=== PATIENT | female | born 1940 | race Caucasian/White ===

== ENCOUNTER → 2016-05-08 | Outpatient (CLI) | payer OTHER ==
[~2016-05-08] MED LIST: ACID CONTROL150 MG PO; ALDACTONE25 MG PO; AMARYL 2MG TABLE2 MG PO; ANORO ELLIPTA1 EACH INH; ASPIRIN EC81 MG PO; ATROVENT-HFA12.9 GM INH; AUGMENTIN 875-1 EACH PO; BUPROPION HCL100 M1 PO; BUSPIRONE HCL5 MG PO; CARDIZEM CD120 MG PO; CLARITIN 10MG T10 MG PO; COL-RITE100 MG PO; COZAAR 50MG TAB50 MG PO; DALIRESP500 MCG PO; DIFLUCAN150 MG PO; DIGITEK250 MCG PO; ELIQUIS5 MG PO; ESCITALOPRAM OX20 MG PO; FAMOTIDINE20 MG PO; FLONASE 0.05% N16 GM INH; FUROSEMIDE20 MG PO; IPRAT-ALBUT 0.5-3 ML INH; IPRAT-ALBUT 0.5-3 ML NEB; K-DUR TAB 10 M10 MEQ PO; KEFLEX500 MG PO; LANTUS SOL100 UNIT/1 SC; LASIX40 MG PO; LEVEMIR100 UNIT/1 SQ; LEXAPRO20 MG PO; LINZESS290 MCG PO; LIPITOR TAB 1010 MG PO; LISINOPRIL2.5 MG PO; LOPRESSOR 25 MG25 MG PO; LOPRESSOR 50 MG50 MG PO; METOCLOPRAMIDE H5 MG PO; MUCINEX DM ER1 EAC1 PO; MUCINEX600 MG PO; NEURONTIN 300300 MG PO; NITROFURANTOIN100 MG PO; NITROSTAT0.4 MG SQ; NOVOLIN R100 UNIT/1 SQ; PHENERGAN 25 MG25 M1 PO; PREDNISONE20 MG PO; REQUIP0.5 MG PO; REQUIP1 MG PO; RESTASIS 0.05%1 EACH OD; TESSALON PERLE100 MG PO; THEO-DUR 300 M300 MG PO; TRADJENTA5 MG PO; ULTRAM50 MG PO; VENTOLIN/PROVE0.5 ML INH; WARFARIN SODIUM3 MG PO; ZOFRAN 8 MG TAB8 MG PO; ZOFRAN4 MG PO
== END ==
LOC: RT 17:57
DX: I48.91 Unspecified atrial fibrillation (principal)
CPT/HCPCS: 93270

== ENCOUNTER 2016-06-10 12:20 | Inpatient (IN) | payer OTHER ==
[~2016-06-10] VITALS: Ht 157.5 cm; Wt 110.2 kg
[2016-06-10] MEDS ORDERED: ANORO ELLIPTA1 EACH INH (15:12)
[2016-06-10] MEDS ORDERED: LIPITOR TAB 1010 MG PO (15:13)
[2016-06-10] MEDS ORDERED: DALIRESP500 MCG PO (15:15)
[2016-06-10] MEDS ORDERED: BUPROPION HCL100 M1 PO (15:15)
[2016-06-10] MEDS ORDERED: DIGITEK250 MCG PO (15:15)
[2016-06-10] MEDS ORDERED: ESCITALOPRAM OX20 MG PO (15:18)
[2016-06-10] MEDS ORDERED: AMARYL 2MG TABLE2 MG PO (15:19)
[2016-06-10] MEDS ORDERED: NEURONTIN 300300 MG PO (15:19)
[2016-06-10] MEDS ORDERED: FUROSEMIDE20 MG PO (15:19)
[2016-06-10] MEDS ORDERED: IPRAT-ALBUT 0.5-3 ML INH (15:20)
[2016-06-10] MEDS ORDERED: LANTUS SOL100 UNIT/1 SC (15:21)
[2016-06-10] MEDS ORDERED: LINZESS290 MCG PO (15:22)
[2016-06-10] MEDS ORDERED: CLARITIN 10MG T10 MG PO (15:22)
[2016-06-10] MEDS ORDERED: COZAAR 50MG TAB50 MG PO (15:23)
[2016-06-10] MEDS ORDERED: METOCLOPRAMIDE H5 MG PO (15:24)
[2016-06-10] MEDS ORDERED: LOPRESSOR 50 MG50 MG PO (15:25)
[2016-06-10] MEDS ORDERED: MUCINEX600 MG PO (15:25)
[2016-06-10] MEDS ORDERED: ZOFRAN 8 MG TAB8 MG PO (15:26)
[2016-06-10] MEDS ORDERED: PHENERGAN 25 MG25 M1 PO (15:27)
[2016-06-10] MEDS ORDERED: ACID CONTROL150 MG PO (15:28)
[2016-06-10] MEDS ORDERED: K-DUR TAB 10 M10 MEQ PO (15:28)
[2016-06-10] MEDS ORDERED: RESTASIS 0.05%1 EACH OD (15:29)
[2016-06-10] MEDS ORDERED: THEO-DUR 300 M300 MG PO (15:30)
[2016-06-10] MEDS ORDERED: REQUIP1 MG PO (15:30)
[2016-06-10] MEDS ORDERED: TRADJENTA5 MG PO (15:31)
[2016-06-10] MEDS ORDERED: WARFARIN SODIUM3 MG PO (15:31)
[2016-06-10] MEDS ORDERED: ULTRAM50 MG PO (15:31)
[2016-06-10 15:37] LABS: HEMOGLOBIN 11.2 gm/dl (12.3-15.3); RED BLOOD COUNT 4.11 M/UL (4.00-5.10)
[2016-06-10 19:03] LABS: THEOPHYLLINE 19.1 ug/mL (10.0-20.0)
[2016-06-11 03:39] LABS: HEMOGLOBIN 10.2 gm/dl (12.3-15.3); RED BLOOD COUNT 3.73 M/UL (4.00-5.10); WHITE BLOOD COUNT 7.3 K/UL (4.5-11.0)
[2016-06-11 03:57] LABS: THEOPHYLLINE 18.9 ug/mL (10.0-20.0)
[2016-06-12 04:48] LABS: HEMOGLOBIN 12.2 gm/dl (12.3-15.3); RED BLOOD COUNT 4.33 M/UL (4.00-5.10); WHITE BLOOD COUNT 11.3 K/UL (4.5-11.0)
[2016-06-13 03:48] LABS: HEMOGLOBIN 10.4 gm/dl (12.3-15.3)
[2016-06-13 03:50] LABS: RED BLOOD COUNT 3.89 M/UL (4.00-5.10); WHITE BLOOD COUNT 5.3 K/UL (4.5-11.0)
[2016-06-13 04:07] LABS: BUN/CREATININE RATIO 24 (0-10)
[2016-06-14 03:19] LABS: HEMOGLOBIN 9.8 gm/dl (12.3-15.3); RED BLOOD COUNT 3.64 M/UL (4.00-5.10); WHITE BLOOD COUNT 5.2 K/UL (4.5-11.0)
[2016-06-15 05:10] LABS: HEMOGLOBIN 10.2 gm/dl (12.3-15.3); RED BLOOD COUNT 3.86 M/UL (4.00-5.10); WHITE BLOOD COUNT 5.6 K/UL (4.5-11.0)
[2016-06-15 05:18] LABS: BUN/CREATININE RATIO 29 (0-10)
[2016-06-16 03:41] LABS: HEMOGLOBIN 9.7 gm/dl (12.3-15.3); RED BLOOD COUNT 3.68 M/UL (4.00-5.10); WHITE BLOOD COUNT 6.6 K/UL (4.5-11.0)
[2016-06-16 04:02] LABS: BUN/CREATININE RATIO 26 (0-10)
[2016-06-17 03:53] LABS: HEMOGLOBIN 8.8 gm/dl (12.3-15.3); RED BLOOD COUNT 3.37 M/UL (4.00-5.10); WHITE BLOOD COUNT 7.9 K/UL (4.5-11.0)
[2016-06-17 04:20] LABS: BUN/CREATININE RATIO 29 (0-10)
[2016-06-18 03:47] LABS: HEMOGLOBIN 9.5 gm/dl (12.3-15.3); RED BLOOD COUNT 3.58 M/UL (4.00-5.10); WHITE BLOOD COUNT 11.8 K/UL (4.5-11.0)
[2016-06-18 03:55] LABS: BUN/CREATININE RATIO 30 (0-10)
[2016-06-19 03:54] LABS: HEMOGLOBIN 9.1 gm/dl (12.3-15.3); RED BLOOD COUNT 3.45 M/UL (4.00-5.10); WHITE BLOOD COUNT 10.2 K/UL (4.5-11.0)
[2016-06-19 04:18] LABS: BUN/CREATININE RATIO 43 (0-10)
[2016-06-20 03:28] LABS: HEMOGLOBIN 9.1 gm/dl (12.3-15.3); RED BLOOD COUNT 3.44 M/UL (4.00-5.10); WHITE BLOOD COUNT 9.9 K/UL (4.5-11.0)
[2016-06-20 03:47] LABS: BUN/CREATININE RATIO 48 (0-10)
[2016-06-21 04:33] LABS: BUN/CREATININE RATIO 37 (0-10)
[2016-06-22 04:51] LABS: HEMOGLOBIN 8.8 gm/dl (12.3-15.3); RED BLOOD COUNT 3.31 M/UL (4.00-5.10); WHITE BLOOD COUNT 10.3 K/UL (4.5-11.0)
[2016-06-22 05:11] LABS: BUN/CREATININE RATIO 42 (0-10)
[2016-06-24 04:09] LABS: BUN/CREATININE RATIO 39 (0-10)
[2016-06-25 03:18] LABS: HEMOGLOBIN 9.9 gm/dl (12.3-15.3)
[2016-06-25 03:52] LABS: BUN/CREATININE RATIO 36 (0-10)
[2016-06-25 04:00] LABS: RED BLOOD COUNT 3.77 M/UL (4.00-5.10)
[2016-06-26 05:11] LABS: HEMOGLOBIN 8.6 gm/dl (12.3-15.3); WHITE BLOOD COUNT 10.2 K/UL (4.5-11.0)
[2016-06-26 05:15] LABS: RED BLOOD COUNT 3.32 M/UL (4.00-5.10)
[2016-06-27 04:21] LABS: HEMOGLOBIN 7.2 gm/dl (12.3-15.3)
[2016-06-27 04:24] LABS: RED BLOOD COUNT 2.73 M/UL (4.00-5.10); WHITE BLOOD COUNT 6.1 K/UL (4.5-11.0)
[2016-06-27 04:40] LABS: BUN/CREATININE RATIO 48 (0-10)
[2016-06-28 04:08] LABS: HEMOGLOBIN 8.5 gm/dl (12.3-15.3); RED BLOOD COUNT 3.27 M/UL (4.00-5.10); WHITE BLOOD COUNT 6.4 K/UL (4.5-11.0)
[2016-06-28 04:30] LABS: BUN/CREATININE RATIO 43 (0-10)
[2016-06-29 03:34] LABS: RED BLOOD COUNT 3.39 M/UL (4.00-5.10); WHITE BLOOD COUNT 6.5 K/UL (4.5-11.0)
[2016-06-29 03:52] LABS: BUN/CREATININE RATIO 41 (0-10)
[2016-06-30 04:34] LABS: HEMOGLOBIN 8.5 gm/dl (12.3-15.3); RED BLOOD COUNT 3.23 M/UL (4.00-5.10); WHITE BLOOD COUNT 6.2 K/UL (4.5-11.0)
[2016-06-30 04:47] LABS: BUN/CREATININE RATIO 33 (0-10)
[2016-07-01 03:37] LABS: RED BLOOD COUNT 3.37 M/UL (4.00-5.10); WHITE BLOOD COUNT 7.4 K/UL (4.5-11.0)
[2016-07-01 03:53] LABS: BUN/CREATININE RATIO 38 (0-10)
[2016-07-02 04:09] LABS: HEMOGLOBIN 9.1 gm/dl (12.3-15.3); RED BLOOD COUNT 3.46 M/UL (4.00-5.10); WHITE BLOOD COUNT 6.3 K/UL (4.5-11.0)
[2016-07-02 04:24] LABS: BUN/CREATININE RATIO 28 (0-10)
[2016-07-03 03:45] LABS: HEMOGLOBIN 9.8 gm/dl (12.3-15.3); RED BLOOD COUNT 3.58 M/UL (4.00-5.10); WHITE BLOOD COUNT 5.9 K/UL (4.5-11.0)
[2016-07-03 04:15] LABS: BUN/CREATININE RATIO 29 (0-10)
[2016-07-04 05:20] LABS: HEMOGLOBIN 9.2 gm/dl (12.3-15.3); RED BLOOD COUNT 3.54 M/UL (4.00-5.10); WHITE BLOOD COUNT 4.8 K/UL (4.5-11.0)
[2016-07-04 06:00] LABS: BUN/CREATININE RATIO 26 (0-10)
[2016-07-05 04:14] LABS: HEMOGLOBIN 9.5 gm/dl (12.3-15.3); RED BLOOD COUNT 3.62 M/UL (4.00-5.10)
[2016-07-05 04:30] LABS: BUN/CREATININE RATIO 20 (0-10)
[2016-07-06 06:15] LABS: BUN/CREATININE RATIO 14 (0-10)
[2016-07-08 05:36] LABS: HEMOGLOBIN 10.5 gm/dl (12.3-15.3); RED BLOOD COUNT 4.03 M/UL (4.00-5.10); WHITE BLOOD COUNT 5.5 K/UL (4.5-11.0)
[2016-07-08 05:56] LABS: BUN/CREATININE RATIO 9 (0-10)
[2016-07-09 06:21] LABS: BUN/CREATININE RATIO 9 (0-10)
--- NOTE | 2016-07-11 05:30 | NUR ---
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 THE PT STATED SHE NEEDED TO USE THE BATHROOM. DAMION AND AIDAN REMINDED PT THAT SHE HAD A [employer] CATHETER IN PLACE. PT CONTINUED TO STATE SHE NEEDED TO GO TO BATHROOM AND DAMION AND AIDAN OFFERED TO PUT PT ON BEDPAN, AND PT STATED SHE WANTED TO GET OUT OF BED TO USE THE BATHROOM. UPON HEARING THAT THE PT WANTED TO GET OUT OF BED, I ENTERED THE ROOM TO INVESTIGATE. I ASKED THE PT IF SHE NEEDED TO USE THE BATHROOM AND THE PT STATED THAT SHE NEEDED TO URINATE. I REMINDED THE PT THAT SHE HAD A CATHETER IN PLACE. I CHECKED THE CATHETER TO MAKE SURE IT WAS NOT KINKED AND CAUSING PRESSURE ON THE PT'S BLADDER. THE CATHETER WAS FOUND TO BE PATENT, BUT IT WAS NOT IN AN OPTIMAL POSITION. I REPOSITIONED THE CATHETER AND REPLACED THE STAT LOCK. THE PT AGAIN STATED THAT SHE NEEDED TO USE THE BATHROOM. I TOLD HER IT WAS NOT SAFE FOR HER TO GET OUT OF BED BECAUSE SHE NEARLY FELL THE LAST TIME SHE WAS OUT OF BED AND ROHIT AND I BARELY GOT HER BACK INTO BED SAFELY. AIDAN AND DAMION STATED THAT SHE REFUSED TO USE THE BEDPAN EARLIER, THE PT DENIED THAT SHE REFUSED THE BEDPAN. I THEN HELPED THE CNAs PULL THE PT UP IN BED AND TO PUT THE PT ON THE BEDPAN.
[2016-09-01] MEDS ORDERED: TESSALON PERLE100 MG PO (02:55)
[2016-09-01] MEDS ORDERED: BUSPIRONE HCL5 MG PO (02:57)
[2016-09-10] MEDS ORDERED: DIFLUCAN150 MG PO (21:51)
[2016-09-11] MEDS ORDERED: KEFLEX500 MG PO (21:52)
[2016-09-11] MEDS ORDERED: ZOFRAN4 MG PO (21:52)
[2016-09-11] MEDS ORDERED: COL-RITE100 MG PO (21:53)
[2016-09-11] MEDS ORDERED: VENTOLIN/PROVE0.5 ML INH (21:54)
[2016-09-11] MEDS ORDERED: IPRAT-ALBUT 0.5-3 ML INH (21:55)
[2016-09-11] MEDS ORDERED: NOVOLIN R100 UNIT/1 SQ (21:57)
[2016-09-12] MEDS ORDERED: LISINOPRIL2.5 MG PO (16:46)
[2016-09-12] MEDS ORDERED: ALDACTONE25 MG PO (16:48)
[2016-09-12] MEDS ORDERED: NITROSTAT0.4 MG SQ (16:48)
== END 2016-07-11 15:57 | DRG 853 ==
LOC: PROG CARE 12:20 → M/S 14:24 → CCU 14:24 → PROG CARE 07-02 21:25 → M/S 07-05 09:58
PROVIDERS: Emergency Medicine; Family Medicine; Internal Medicine; Internal Medicine Pulmonary Disease; ADMIT Internal Medicine
PROC: 5A1955Z Respiratory Ventilation, Greater than 96 Consecutive Hours (ICD-10-PCS; 2016-06-10)
PROC: 0BH17EZ Insertion of Endotracheal Airway into Trachea, Via Natural or Artificial Opening (ICD-10-PCS; 2016-06-10)
PROC: 0B9J8ZX Drainage of Left Lower Lung Lobe, Via Natural or Artificial Opening Endoscopic, Diagnostic (ICD-10-PCS; principal; 2016-06-11 08:08)
PROC: 5A1955Z Respiratory Ventilation, Greater than 96 Consecutive Hours (ICD-10-PCS; 2016-06-25)
PROC: 0BH17EZ Insertion of Endotracheal Airway into Trachea, Via Natural or Artificial Opening (ICD-10-PCS; 2016-06-25)
DX: A41.9 Sepsis, unspecified organism (principal); J96.21 Acute and chronic respiratory failure with hypoxia; J96.22 Acute and chronic respiratory failure with hypercapnia; I50.33 Acute on chronic diastolic (congestive) heart failure; G93.40 Encephalopathy, unspecified; J18.9 Pneumonia, unspecified organism; R65.21 Severe sepsis with septic shock; E66.2 Morbid (severe) obesity with alveolar hypoventilation; N30.00 Acute cystitis without hematuria; J44.0 Chronic obstructive pulmonary disease with (acute) lower respiratory infection; N17.9 Acute kidney failure, unspecified; I48.2 Chronic atrial fibrillation; E87.6 Hypokalemia; E11.9 Type 2 diabetes mellitus without complications; I11.0 Hypertensive heart disease with heart failure; Y95 Nosocomial condition; E78.5 Hyperlipidemia, unspecified; B96.20 Unspecified Escherichia coli [E. coli] as the cause of diseases classified elsewhere; D64.9 Anemia, unspecified; Z79.01 Long term (current) use of anticoagulants; Z88.1 Allergy status to other antibiotic agents; Z88.8 Allergy status to other drugs, medicaments and biological substances; Z91.041 Radiographic dye allergy status; Z79.4 Long term (current) use of insulin; Z79.899 Other long term (current) drug therapy; Z87.891 Personal history of nicotine dependence; Z82.49 Family history of ischemic heart disease and other diseases of the circulatory system; Z83.3 Family history of diabetes mellitus; Z68.37 Body mass index [BMI] 37.0-37.9, adult; F41.9 Anxiety disorder, unspecified; F32.9 Major depressive disorder, single episode, unspecified; Z98.42 Cataract extraction status, left eye; Z98.41 Cataract extraction status, right eye; Z96.1 Presence of intraocular lens; Z90.49 Acquired absence of other specified parts of digestive tract
CPT/HCPCS: ECHO; 31500; 36415; 36600; 70450; 71010; 74000; 80048; 80053; 80061; 80162; 80198; 80202; 81001; 82550; 82553; 82607; 82728; 82746; 82803; 82962; 83036; 83735; 83880; 84132; 84439; 84443; 84484; 85025; 85027; 85610; 86140; 87040; 87070; 87077; 87081; 87086; 87186; 87205; 89055; 92526; 92610; 93005; 93306; 93308; 93970; 94002; 94003; 94640; 94660; 94664; 94760; 95819; 97110; 97530; A4628; J1120; J1205; J1335; J1642; J1650; J1940; J2060; J2250; J2270; J3370; J3480; J7030; J7040; J7050; J7070; Q0162

== ENCOUNTER 2016-07-20 12:57 | Inpatient (IN) | payer OTHER ==
[~2016-07-20] VITALS: Ht 160 cm; Wt 102.1 kg
[~2016-07-20 12:57] MED LIST changes: -ALDACTONE25 MG PO; -ASPIRIN EC81 MG PO; -ATROVENT-HFA12.9 GM INH; -AUGMENTIN 875-1 EACH PO; -BUSPIRONE HCL5 MG PO; -CARDIZEM CD120 MG PO; -COL-RITE100 MG PO; -DIFLUCAN150 MG PO; -ELIQUIS5 MG PO; -FAMOTIDINE20 MG PO; -FLONASE 0.05% N16 GM INH; -IPRAT-ALBUT 0.5-3 ML NEB; -KEFLEX500 MG PO; -LASIX40 MG PO; -LEVEMIR100 UNIT/1 SQ; -LEXAPRO20 MG PO; -LISINOPRIL2.5 MG PO; -LOPRESSOR 25 MG25 MG PO; -MUCINEX DM ER1 EAC1 PO; -NITROFURANTOIN100 MG PO; -NITROSTAT0.4 MG SQ; -NOVOLIN R100 UNIT/1 SQ; -PREDNISONE20 MG PO; -REQUIP0.5 MG PO; -TESSALON PERLE100 MG PO; -VENTOLIN/PROVE0.5 ML INH; -ZOFRAN4 MG PO
[2016-07-20 14:41] LABS: HEMOGLOBIN 10.9 gm/dl (12.3-15.3); RED BLOOD COUNT 4.08 M/UL (4.00-5.10); WHITE BLOOD COUNT 11.5 K/UL (4.5-11.0)
[2016-07-20 15:02] LABS: BUN/CREATININE RATIO 9 (0-10)
[2016-07-20] MEDS ORDERED: FAMOTIDINE20 MG PO (19:43)
[2016-07-20] MEDS ORDERED: REQUIP0.5 MG PO (19:56)
[2016-07-20] MEDS ORDERED: ATROVENT-HFA12.9 GM INH (19:57)
[2016-07-20] MEDS ORDERED: LEXAPRO20 MG PO (19:58)
[2016-07-20] MEDS ORDERED: NITROFURANTOIN100 MG PO (19:59)
[2016-07-20] MEDS ORDERED: LEVEMIR100 UNIT/1 SQ (20:00)
[2016-07-21 02:28] LABS: HEMOGLOBIN 10.5 gm/dl (12.3-15.3); RED BLOOD COUNT 3.91 M/UL (4.00-5.10); WHITE BLOOD COUNT 10.6 K/UL (4.5-11.0)
[2016-07-21 02:57] LABS: BUN/CREATININE RATIO 11 (0-10)
[2016-07-21 11:32] LABS: BORDETELLA PERTUSSIS Not Detected (Negative); CHLAMYDOPHLA PNEUMONIAE Not Detected (Negative); CORONAVIRUS HKU1 Not Detected (Negative); CORONAVIRUS NL63 Not Detected (Negative); CORONAVIRUS OC43 Not Detected (Negative); CORONOAVIRUS 229E Not Detected (Negative); HUMAN METAPNEUMOVIRUS Not Detected (Negative); HUMAN RHINOVIRUS/ENTEROVIRUS Not Detected (Negative); INFLUENZA A Not Detected (Negative); INFLUENZA A H-1-2009 Not Detected (Negative); INFLUENZA A H1 Not Detected (Negative); INFLUENZA A H3 Not Detected (Negative); INFLUENZA B Not Detected (Negative); MYCOPLASMA PNEUMONIAE Not Detected (Negative); PARAINFLUENZA VIRUS 1 Not Detected (Negative); PARAINFLUENZA VIRUS 2 Not Detected (Negative); PARAINFLUENZA VIRUS 4 Not Detected (Negative); RESPIRATORY SYNCYTIAL VIRUS Not Detected (Negative)
[2016-07-21 12:53] LABS: PARAINFLUENZA VIRUS 3 DETECTED (Negative)
[2016-07-21] MEDS ORDERED: LOPRESSOR 25 MG25 MG PO (19:53)
[2016-07-22 03:42] LABS: RED BLOOD COUNT 3.77 M/UL (4.00-5.10)
[2016-07-22 03:45] LABS: WHITE BLOOD COUNT 5.3 K/UL (4.5-11.0)
[2016-07-22 04:03] LABS: BUN/CREATININE RATIO 21 (0-10)
[2016-07-23 04:12] LABS: HEMOGLOBIN 9.8 gm/dl (12.3-15.3); RED BLOOD COUNT 3.69 M/UL (4.00-5.10); WHITE BLOOD COUNT 7.6 K/UL (4.5-11.0)
[2016-07-23 04:25] LABS: BUN/CREATININE RATIO 26 (0-10)
[2016-07-25 03:41] LABS: HEMOGLOBIN 10.1 gm/dl (12.3-15.3); RED BLOOD COUNT 3.84 M/UL (4.00-5.10)
[2016-07-25 03:49] LABS: WHITE BLOOD COUNT 5.6 K/UL (4.5-11.0)
[2016-07-25 04:05] LABS: BUN/CREATININE RATIO 23 (0-10)
[2016-07-26] MEDS ORDERED: ASPIRIN EC81 MG PO (19:22)
[2016-07-26] MEDS ORDERED: ELIQUIS5 MG PO (19:23)
[2016-07-26] MEDS ORDERED: AUGMENTIN 875-1 EACH PO (19:24)
[2016-07-26] MEDS ORDERED: IPRAT-ALBUT 0.5-3 ML NEB (19:25)
[2016-07-26] MEDS ORDERED: PREDNISONE20 MG PO (19:26)
[2016-07-26] MEDS ORDERED: CARDIZEM CD120 MG PO (19:26)
[2016-09-01] MEDS ORDERED: TESSALON PERLE100 MG PO (02:55)
[2016-09-01] MEDS ORDERED: BUSPIRONE HCL5 MG PO (02:57)
[2016-09-10] MEDS ORDERED: DIFLUCAN150 MG PO (21:51)
[2016-09-11] MEDS ORDERED: ZOFRAN4 MG PO (21:52)
[2016-09-11] MEDS ORDERED: KEFLEX500 MG PO (21:52)
[2016-09-11] MEDS ORDERED: COL-RITE100 MG PO (21:53)
[2016-09-11] MEDS ORDERED: VENTOLIN/PROVE0.5 ML INH (21:54)
[2016-09-11] MEDS ORDERED: IPRAT-ALBUT 0.5-3 ML INH (21:55)
[2016-09-11] MEDS ORDERED: NOVOLIN R100 UNIT/1 SQ (21:57)
[2016-09-12] MEDS ORDERED: LISINOPRIL2.5 MG PO (16:46)
[2016-09-12] MEDS ORDERED: NITROSTAT0.4 MG SQ (16:48)
[2016-09-12] MEDS ORDERED: ALDACTONE25 MG PO (16:48)
== END 2016-07-26 20:35 | disposition home health service (06) | DRG 871 ==
LOC: ER1 12:57 → PROG CARE 16:38 → MED SURG 4 16:38 → ZEROF 16:38 → PROG CARE 19:29 → MED SURG 4 07-22 23:39
PROVIDERS: Emergency Medicine; Family Medicine; Internal Medicine Critical Care Medicine; ADMIT Internal Medicine Infectious Disease
PROC: 5A09357 Assistance with Respiratory Ventilation, Less than 24 Consecutive Hours, Continuous Positive Airway Pressure (ICD-10-PCS; principal; 2016-07-23)
DX: A41.9 Sepsis, unspecified organism (principal); J96.22 Acute and chronic respiratory failure with hypercapnia; J96.21 Acute and chronic respiratory failure with hypoxia; J18.9 Pneumonia, unspecified organism; I50.33 Acute on chronic diastolic (congestive) heart failure; J44.0 Chronic obstructive pulmonary disease with (acute) lower respiratory infection; J44.1 Chronic obstructive pulmonary disease with (acute) exacerbation; E66.2 Morbid (severe) obesity with alveolar hypoventilation; E87.2 Acidosis; J98.11 Atelectasis; E11.65 Type 2 diabetes mellitus with hyperglycemia; I48.2 Chronic atrial fibrillation; I11.0 Hypertensive heart disease with heart failure; B97.89 Other viral agents as the cause of diseases classified elsewhere; F41.0 Panic disorder [episodic paroxysmal anxiety]; F41.9 Anxiety disorder, unspecified; Z87.891 Personal history of nicotine dependence; Z91.19 Patient's noncompliance with other medical treatment and regimen; Z68.39 Body mass index [BMI] 39.0-39.9, adult; Z99.81 Dependence on supplemental oxygen; Z79.01 Long term (current) use of anticoagulants; Z79.4 Long term (current) use of insulin; Z79.84 Long term (current) use of oral hypoglycemic drugs; Z79.51 Long term (current) use of inhaled steroids; Z79.82 Long term (current) use of aspirin; Z79.1 Long term (current) use of non-steroidal anti-inflammatories (NSAID); Z79.899 Other long term (current) drug therapy; Z88.8 Allergy status to other drugs, medicaments and biological substances; Z88.3 Allergy status to other anti-infective agents; Z88.6 Allergy status to analgesic agent; Z91.041 Radiographic dye allergy status; Z90.5 Acquired absence of kidney; Z90.49 Acquired absence of other specified parts of digestive tract; Z98.42 Cataract extraction status, left eye; Z98.41 Cataract extraction status, right eye; Z96.1 Presence of intraocular lens; Z98.890 Other specified postprocedural states; Z82.49 Family history of ischemic heart disease and other diseases of the circulatory system; Z83.3 Family history of diabetes mellitus
CPT/HCPCS: 36415; 36600; 71010; 71020; 71250; 80048; 80053; 80202; 81001; 82550; 82553; 82803; 82962; 83605; 83735; 83874; 83880; 84484; 85025; 85027; 85610; 85730; 87040; 87070; 87205; 87486; 87581; 87633; 87798; 93005; 94640; 94660; 94664; 94667; 94668; 96365; 96367; 96375; 97110; 97116; 97530; 97535; 99285; J1642; J1940; J1956; J2543; J2920; J2930; J3370; J7030; J7050; J7070

== ENCOUNTER 2016-07-31 22:13 | Emergency (ER) | payer OTHER ==
[~2016-07-31 22:13] MED LIST changes: +ASPIRIN EC81 MG PO; +ATROVENT-HFA12.9 GM INH; +AUGMENTIN 875-1 EACH PO; +CARDIZEM CD120 MG PO; +ELIQUIS5 MG PO; +FAMOTIDINE20 MG PO; +IPRAT-ALBUT 0.5-3 ML NEB; +LEVEMIR100 UNIT/1 SQ; +LEXAPRO20 MG PO; +LOPRESSOR 25 MG25 MG PO; +NITROFURANTOIN100 MG PO; +PREDNISONE20 MG PO; +REQUIP0.5 MG PO
[2016-09-01] MEDS ORDERED: TESSALON PERLE100 MG PO (02:55)
[2016-09-01] MEDS ORDERED: BUSPIRONE HCL5 MG PO (02:57)
[2016-09-10] MEDS ORDERED: DIFLUCAN150 MG PO (21:51)
[2016-09-11] MEDS ORDERED: ZOFRAN4 MG PO (21:52)
[2016-09-11] MEDS ORDERED: KEFLEX500 MG PO (21:52)
[2016-09-11] MEDS ORDERED: COL-RITE100 MG PO (21:53)
[2016-09-11] MEDS ORDERED: VENTOLIN/PROVE0.5 ML INH (21:54)
[2016-09-11] MEDS ORDERED: IPRAT-ALBUT 0.5-3 ML INH (21:55)
[2016-09-11] MEDS ORDERED: NOVOLIN R100 UNIT/1 SQ (21:57)
[2016-09-12] MEDS ORDERED: LISINOPRIL2.5 MG PO (16:46)
[2016-09-12] MEDS ORDERED: ALDACTONE25 MG PO (16:48)
[2016-09-12] MEDS ORDERED: NITROSTAT0.4 MG SQ (16:48)
== END 2016-08-01 02:15 | disposition home or self-care (01) ==
LOC: ER1 22:13
DX: N39.0 Urinary tract infection, site not specified (principal); I11.0 Hypertensive heart disease with heart failure; I50.9 Heart failure, unspecified; I48.91 Unspecified atrial fibrillation; J44.9 Chronic obstructive pulmonary disease, unspecified; E11.9 Type 2 diabetes mellitus without complications; Z88.0 Allergy status to penicillin; Z88.1 Allergy status to other antibiotic agents; Z88.5 Allergy status to narcotic agent; Z88.8 Allergy status to other drugs, medicaments and biological substances; Z88.6 Allergy status to analgesic agent; Z90.49 Acquired absence of other specified parts of digestive tract
CPT/HCPCS: 81001; 87086; 99284

== ENCOUNTER → 2016-08-06 | Outpatient (CLI) | payer OTHER ==
[~2016-08-06] MED LIST changes: +ALDACTONE25 MG PO; +BUSPIRONE HCL5 MG PO; +COL-RITE100 MG PO; +DIFLUCAN150 MG PO; +FLONASE 0.05% N16 GM INH; +KEFLEX500 MG PO; +LASIX40 MG PO; +LISINOPRIL2.5 MG PO; +MUCINEX DM ER1 EAC1 PO; +NITROSTAT0.4 MG SQ; +NOVOLIN R100 UNIT/1 SQ; +TESSALON PERLE100 MG PO; +VENTOLIN/PROVE0.5 ML INH; +ZOFRAN4 MG PO
== END ==
LOC: RAD 19:39
DX: M25.551 Pain in right hip (principal); R05 Cough; R91.8 Other nonspecific abnormal finding of lung field
CPT/HCPCS: 71020; 73522

== ENCOUNTER 2016-08-10 13:13 | Inpatient (IN) | payer OTHER ==
[~2016-08-10] VITALS: Ht 157.5 cm; Wt 101.8 kg
[~2016-08-10 13:13] MED LIST changes: -ALDACTONE25 MG PO; -BUSPIRONE HCL5 MG PO; -COL-RITE100 MG PO; -DIFLUCAN150 MG PO; -FLONASE 0.05% N16 GM INH; -KEFLEX500 MG PO; -LASIX40 MG PO; -LISINOPRIL2.5 MG PO; -MUCINEX DM ER1 EAC1 PO; -NITROSTAT0.4 MG SQ; -NOVOLIN R100 UNIT/1 SQ; -TESSALON PERLE100 MG PO; -VENTOLIN/PROVE0.5 ML INH; -ZOFRAN4 MG PO
[2016-08-10 14:55] LABS: HEMOGLOBIN 10.9 gm/dl (12.3-15.3); RED BLOOD COUNT 4.11 M/UL (4.00-5.10); WHITE BLOOD COUNT 5.7 K/UL (4.5-11.0)
[2016-08-10 15:13] LABS: BUN/CREATININE RATIO 6 (0-10)
[2016-08-11] MEDS ORDERED: REQUIP1 MG PO
[2016-08-11 04:17] LABS: HEMOGLOBIN 10.4 gm/dl (12.3-15.3); RED BLOOD COUNT 3.92 M/UL (4.00-5.10); WHITE BLOOD COUNT 6.1 K/UL (4.5-11.0)
[2016-08-11 04:42] LABS: BUN/CREATININE RATIO 10 (0-10)
[2016-08-12 02:42] LABS: HEMOGLOBIN 10.3 gm/dl (12.3-15.3); RED BLOOD COUNT 3.89 M/UL (4.00-5.10); WHITE BLOOD COUNT 6.1 K/UL (4.5-11.0)
[2016-08-13 04:35] LABS: HEMOGLOBIN 9.9 gm/dl (12.3-15.3); RED BLOOD COUNT 3.79 M/UL (4.00-5.10); WHITE BLOOD COUNT 7.5 K/UL (4.5-11.0)
[2016-08-13 04:52] LABS: BUN/CREATININE RATIO 23 (0-10)
[2016-08-13] MEDS ORDERED: PREDNISONE20 MG PO (16:49)
[2016-08-13] MEDS ORDERED: MUCINEX DM ER1 EAC1 PO (16:51)
[2016-08-13] MEDS ORDERED: LEVEMIR100 UNIT/1 SQ (16:51)
[2016-08-13] MEDS ORDERED: LASIX40 MG PO (16:53)
[2016-08-13] MEDS ORDERED: FLONASE 0.05% N16 GM INH (16:53)
[2016-09-01] MEDS ORDERED: TESSALON PERLE100 MG PO (02:55)
[2016-09-01] MEDS ORDERED: BUSPIRONE HCL5 MG PO (02:57)
[2016-09-10] MEDS ORDERED: DIFLUCAN150 MG PO (21:51)
[2016-09-11] MEDS ORDERED: ZOFRAN4 MG PO (21:52)
[2016-09-11] MEDS ORDERED: KEFLEX500 MG PO (21:52)
[2016-09-11] MEDS ORDERED: COL-RITE100 MG PO (21:53)
[2016-09-11] MEDS ORDERED: VENTOLIN/PROVE0.5 ML INH (21:54)
[2016-09-11] MEDS ORDERED: IPRAT-ALBUT 0.5-3 ML INH (21:55)
[2016-09-11] MEDS ORDERED: NOVOLIN R100 UNIT/1 SQ (21:57)
[2016-09-12] MEDS ORDERED: LISINOPRIL2.5 MG PO (16:46)
[2016-09-12] MEDS ORDERED: ALDACTONE25 MG PO (16:48)
[2016-09-12] MEDS ORDERED: NITROSTAT0.4 MG SQ (16:48)
== END 2016-08-13 18:00 | disposition home or self-care (01) | DRG 190 ==
LOC: ER1 13:13 → M/S 18:19 → ZEROF 18:19 → M/S 21:28
PROVIDERS: Emergency Medicine; Physician Assistant; ADMIT Family Medicine
DX: J44.0 Chronic obstructive pulmonary disease with (acute) lower respiratory infection (principal); J18.9 Pneumonia, unspecified organism; E66.2 Morbid (severe) obesity with alveolar hypoventilation; I50.32 Chronic diastolic (congestive) heart failure; E87.2 Acidosis; J96.10 Chronic respiratory failure, unspecified whether with hypoxia or hypercapnia; J96.11 Chronic respiratory failure with hypoxia; J98.11 Atelectasis; J20.9 Acute bronchitis, unspecified; J44.1 Chronic obstructive pulmonary disease with (acute) exacerbation; I11.0 Hypertensive heart disease with heart failure; F41.9 Anxiety disorder, unspecified; E11.9 Type 2 diabetes mellitus without complications; I48.2 Chronic atrial fibrillation; Z96.1 Presence of intraocular lens; Z79.01 Long term (current) use of anticoagulants; Z87.891 Personal history of nicotine dependence; Z82.49 Family history of ischemic heart disease and other diseases of the circulatory system; Z83.3 Family history of diabetes mellitus; Z88.8 Allergy status to other drugs, medicaments and biological substances; Z88.6 Allergy status to analgesic agent; Z91.041 Radiographic dye allergy status; Z79.82 Long term (current) use of aspirin; Z79.2 Long term (current) use of antibiotics; Z79.4 Long term (current) use of insulin; Z79.899 Other long term (current) drug therapy; Z79.51 Long term (current) use of inhaled steroids
CPT/HCPCS: 36415; 36600; 71010; 71250; 80048; 80053; 80162; 81001; 82550; 82553; 82607; 82746; 82803; 82962; 83540; 83605; 83735; 83874; 83880; 84484; 85025; 85027; 87040; 93005; 94640; 94660; 94664; 96365; 96366; 96375; 99285; G0378; J1642; J1940; J2543; J2930; J3370; J7030; J7050; J7070; J7509

== ENCOUNTER 2020-02-21 21:28 | Emergency (ER) | payer OTHER ==
[~2020-02-21 21:28] MED LIST changes: +ALDACTONE 25MG25 MG PO; +ALDACTONE25 MG PO; +ANTIVERT 25MG T25 MG PO; +ARICEPT10 MG PO; +ASPIR 8181 MG PO; +ATIVAN 1MG TABLE1 MG PO; +ATIVAN1 MG PO; +ATORVASTATIN CA20 MG PO; +AZITHROMYCIN500 MG PO; +BACTRIM DS TAB1 EACH PO; +BENADRYL25 MG PO; +BEVESPI; +BROVANA15 MCG/2 M INH; +BUDESONIDE0.5 MG/2 M INH; +BUMETANIDE1 MG PO; +BUPROPION HCL100 MG PO; +BUSPAR 10MG10 MG PO; +BUSPAR 5MG TABLE5 MG PO; +BUSPIRONE HCL15 MG PO; +BUSPIRONE HCL5 MG PO; +CELEXA40 MG PO; +CLARITIN10 MG PO; +CLOTRIMAZOLE10 MG MM; +COL-RITE100 MG PO; +CONZIP100 MG PO; +CYCLOBENZAPRINE10 MG PO; +CYCLOBENZAPRINE5 MG PO; +DIAMOX 250 MG250 MG PO; +DIFLUCAN100 MG PO; +DIFLUCAN150 MG PO; +DILAUDID2 MG PO; +DILTIAZEM 24HR180 M1 PO; +DILTIAZEM 24HR240 M1 PO; +DOXYCYCLINE HY100 M2 PO; +DOXYCYCLINE HY100 MG PO; +DULERA 100 MCG8.8 GM INH; +EVISTA60 MG PO; +FEOSOL325 MG PO; +FERROUS SULFAT325 M2 PO; +FLEXERIL 10 MG10 MG PO; +FLONASE 0.05% N16 GM INH; +HUMALOG100 UNIT/1 SC; +HUMULIN R SC; +HYDROCODON-ACE1 EAC2 PO; +KEFLEX CAP 500500 MG PO; +KEFLEX500 MG PO; +KLONOPIN TAB 00.5 MG PO; +LASIX20 MG PO; +LASIX40 MG PO; +LASIX80 MG PO; +LEVAQUIN750 MG PO; +LEVOCETIRIZINE D5 MG PO; +LEVOFLOXACIN500 MG PO; +LINZESS145 MCG PO; +LIORESAL TAB 1010 MG PO; +LIPITOR TAB 2020 MG PO; +LISINOPRIL2.5 MG PO; +MEDROL4 MG PO; +METOPROLOL SUCC25 MG PO; +MUCINEX DM ER1 EAC1 PO; +NEURONTIN300 MG PO; +NITROSTAT0.4 MG SQ; +NORCO 10-325 T1 EACH PO; +NOVOLIN R100 UNIT/1 SQ; +OYSTER SHELL C1 EACH PO; +PERCOCET 5-3251 EACH PO; +POTASSIUM CHLO10 ME1 PO; +POTASSIUM CHLO10 MEQ PO; +POTASSIUM CHLO20 ME1 PO; +PREDNISONE 20 M20 MG PO; +PREDNISONE 50 M50 MG PO; +PREDNISONE10 MG PO; +PROAIR DIGIHAL90 MCG INH; +PROLIA INJ60 MG/1 ML SC; +PROTONIX 40 MG40 M1 PO; +QUETIAPINE FUMA25 MG PO; +REMERON30 MG PO; +REQUIP3 MG PO; +RESTASIS 0.05%1 EACH EYEBOTH; +ROBITUSSIN AC PO; +ROBITUSSIN AC480 ML PO; +ROPINIROLE HCL2 MG PO; +SEROQUEL TAB 2525 MG PO; +SINGULAIR10 MG PO; +SPIRONOLACTONE25 MG PO; +TESSALON PERLE100 MG PO; +VENTOLIN/PROVE0.5 ML INH; +VIBRAMYCIN100 MG PO; +WELLBUTRIN 75 M75 MG PO; +XANAX 0.25 MG0.25 MG PO; +ZANTAC300 MG PO; +ZITHROMAX250 MG PO; +ZITHROMAX500 MG PO; +ZOFRAN4 MG PO; +ZOLOFT100 MG PO; +ZYVOX 600 MG T600 MG PO; +ZYVOX600 MG PO
[2020-02-21 23:37] LABS: HEMOGLOBIN 10.5 gm/dl (12.3-15.3); RED BLOOD COUNT 4.06 M/UL (4.00-5.10); WHITE BLOOD COUNT 4.6 K/UL (4.5-11.0)
[2020-02-22 00:02] LABS: BUN/CREATININE RATIO 16 (0-10)
[2020-02-22] MEDS ORDERED: TESSALON PERLE100 MG PO ×2 (00:37→01:02)
== END 2020-02-22 01:14 | disposition home or self-care (01) ==
LOC: ER1 21:28
PROVIDERS: Physician Assistant
DX: J44.9 Chronic obstructive pulmonary disease, unspecified (principal); I48.20 Chronic atrial fibrillation, unspecified; E11.65 Type 2 diabetes mellitus with hyperglycemia; R60.0 Localized edema; I11.0 Hypertensive heart disease with heart failure; I50.9 Heart failure, unspecified; Z99.81 Dependence on supplemental oxygen; Z87.81 Personal history of (healed) traumatic fracture
CPT/HCPCS: 71045; 80053; 82550; 82553; 83874; 83880; 84484; 85025; 93005; 94664; 96374; 99284; J1940

== ENCOUNTER 2020-05-21 15:38 | Emergency (ER) | payer OTHER ==
[2020-05-21 16:22] LABS: HEMOGLOBIN 11.7 gm/dl (12.3-15.3); RED BLOOD COUNT 4.57 M/UL (4.00-5.10); WHITE BLOOD COUNT 6.9 K/UL (4.5-11.0)
[2020-05-21 17:02] LABS: BUN/CREATININE RATIO 12 (0-10)
[2020-05-21] MEDS ORDERED: LEVOFLOXACIN500 MG PO (18:06)
== END 2020-05-21 18:40 | disposition home or self-care (01) ==
LOC: ER1 15:38
PROVIDERS: Family Medicine
DX: J44.0 Chronic obstructive pulmonary disease with (acute) lower respiratory infection (principal); J18.9 Pneumonia, unspecified organism; E11.65 Type 2 diabetes mellitus with hyperglycemia; I10 Essential (primary) hypertension; Z20.822 Contact with and (suspected) exposure to COVID-19
CPT/HCPCS: 0240U; 36600; 71045; 80053; 82550; 82553; 82803; 83605; 83874; 83880; 84484; 85025; 85610; 87040; 93005; 99285

== ENCOUNTER 2020-05-29 15:17 | Observation (INO) | payer OTHER ==
[~2020-05-29] VITALS: Ht 160 cm; Wt 81.2 kg
[2020-05-29 17:32] LABS: HEMOGLOBIN 11.3 gm/dl (12.3-15.3); RED BLOOD COUNT 4.39 M/UL (4.00-5.10); WHITE BLOOD COUNT 6.8 K/UL (4.5-11.0)
[2020-05-29 17:54] LABS: BUN/CREATININE RATIO 22 (0-10)
[2020-05-30] MEDS ORDERED: CYMBALTA 30 MG30 MG PO (10:44)
[2020-05-30] MEDS ORDERED: OMEPRAZOLE40 MG PO (10:45)
[2020-05-30] MEDS ORDERED: LINZESS145 MCG PO (10:46)
[2020-05-30] MEDS ORDERED: NEURONTIN400 MG PO (10:47)
[2020-05-30] MEDS ORDERED: ELIQUIS5 MG PO (10:47)
[2020-05-30] MEDS ORDERED: MUCINEX1200 MG PO (10:49)
[2020-05-30] MEDS ORDERED: CYCLOBENZAPRINE10 MG PO (10:55)
[2020-05-30] MEDS ORDERED: VITAMIN D350 MCG PO (10:56)
[2020-05-30] MEDS ORDERED: SEROQUEL25 MG PO (10:58)
[2020-05-30] MEDS ORDERED: CLARITIN10 MG PO (11:00)
[2020-05-30] MEDS ORDERED: BROVANA15 MCG/2 M INH (11:04)
[2020-05-30] MEDS ORDERED: ZITHROMAX250 MG PO (11:09)
[2020-05-31 03:28] LABS: HEMOGLOBIN 11.4 gm/dl (12.3-15.3); RED BLOOD COUNT 4.49 M/UL (4.00-5.10); WHITE BLOOD COUNT 7.6 K/UL (4.5-11.0)
[2020-05-31] MEDS ORDERED: CARDIZEM CD240 MG PO (14:21)
[2020-05-31] MEDS ORDERED: K-TAB ER20 MEQ PO (14:21)
== END 2020-05-31 15:55 | disposition home or self-care (01) ==
LOC: ER1 15:17 → CDU 22:16 → M/S 22:16
PROVIDERS: Internal Medicine; Physician Assistant; ADMIT Internal Medicine Infectious Disease
DX: I13.0 Hypertensive heart and chronic kidney disease with heart failure and stage 1 through stage 4 chronic kidney disease, or unspecified chronic kidney disease (principal); I50.33 Acute on chronic diastolic (congestive) heart failure; E11.22 Type 2 diabetes mellitus with diabetic chronic kidney disease; N18.30 Chronic kidney disease, stage 3 unspecified; J44.9 Chronic obstructive pulmonary disease, unspecified; J96.10 Chronic respiratory failure, unspecified whether with hypoxia or hypercapnia; I48.0 Paroxysmal atrial fibrillation; I27.20 Pulmonary hypertension, unspecified; E11.42 Type 2 diabetes mellitus with diabetic polyneuropathy; E66.2 Morbid (severe) obesity with alveolar hypoventilation; Z68.31 Body mass index [BMI] 31.0-31.9, adult; Z20.822 Contact with and (suspected) exposure to COVID-19; Z79.4 Long term (current) use of insulin; Z79.01 Long term (current) use of anticoagulants; Z79.891 Long term (current) use of opiate analgesic; Z79.899 Other long term (current) drug therapy; Z88.1 Allergy status to other antibiotic agents; Z88.6 Allergy status to analgesic agent; Z88.8 Allergy status to other drugs, medicaments and biological substances; Z91.041 Radiographic dye allergy status; Z87.891 Personal history of nicotine dependence; Z99.81 Dependence on supplemental oxygen
CPT/HCPCS: 36415; 36600; 71045; 71250; 80048; 80053; 82550; 82553; 82803; 82962; 83874; 83880; 84484; 85025; 93005; 94640; 94660; 94664; 94760; 96374; 96375; 96376; 99285; G0378; J0696; J1940; U0002

== ENCOUNTER 2020-06-14 00:45 | Emergency (ER) | payer OTHER ==
[~2020-06-14 00:45] MED LIST changes: +CARDIZEM CD240 MG PO; +CYMBALTA 30 MG30 MG PO; +K-TAB ER20 MEQ PO; +MUCINEX1200 MG PO; +NEURONTIN400 MG PO; +OMEPRAZOLE40 MG PO; +SEROQUEL25 MG PO; +VITAMIN D350 MCG PO
[2020-06-14 03:16] LABS: HEMOGLOBIN 10.8 gm/dl (12.3-15.3); RED BLOOD COUNT 4.27 M/UL (4.00-5.10); WHITE BLOOD COUNT 8.1 K/UL (4.5-11.0)
[2020-06-14 03:35] LABS: BUN/CREATININE RATIO 18 (0-10)
[2020-06-14] MEDS ORDERED: CYCLOBENZAPRINE5 MG PO (05:33)
== END 2020-06-14 06:03 | disposition home or self-care (01) ==
LOC: ER1 00:45
PROVIDERS: Family Medicine
DX: J44.1 Chronic obstructive pulmonary disease with (acute) exacerbation (principal); R07.89 Other chest pain; I48.91 Unspecified atrial fibrillation; R25.2 Cramp and spasm; E11.9 Type 2 diabetes mellitus without complications; I50.9 Heart failure, unspecified; Z79.01 Long term (current) use of anticoagulants
CPT/HCPCS: 36600; 71045; 80053; 81001; 82550; 82553; 82803; 83735; 83874; 83880; 84484; 85025; 93005; 94664; 99285; J1642

== ENCOUNTER 2020-07-02 11:21 | Observation (INO) | payer OTHER ==
[~2020-07-02] VITALS: Ht 160 cm; Wt 88.0 kg
[2020-07-02 12:37] LABS: HEMOGLOBIN 11.3 gm/dl (12.3-15.3); RED BLOOD COUNT 4.35 M/UL (4.00-5.10)
[2020-07-02 12:56] LABS: BUN/CREATININE RATIO 14 (0-10)
[2020-07-03 01:21] LABS: HEMOGLOBIN 10.7 gm/dl (12.3-15.3); RED BLOOD COUNT 4.13 M/UL (4.00-5.10); WHITE BLOOD COUNT 6.2 K/UL (4.5-11.0)
[2020-07-03 03:11] LABS: BUN/CREATININE RATIO 12 (0-10)
== END 2020-07-03 18:22 | disposition home or self-care (01) ==
LOC: ER1 11:21 → CDU 14:05 → MED SURG 4 18:31
PROVIDERS: Physician Assistant; Physician Assistant Medical; ADMIT Internal Medicine Infectious Disease
DX: R07.89 Other chest pain (principal); I50.32 Chronic diastolic (congestive) heart failure; J44.9 Chronic obstructive pulmonary disease, unspecified; I48.91 Unspecified atrial fibrillation; E11.22 Type 2 diabetes mellitus with diabetic chronic kidney disease; N18.30 Chronic kidney disease, stage 3 unspecified; I27.20 Pulmonary hypertension, unspecified; Z79.4 Long term (current) use of insulin; G47.33 Obstructive sleep apnea (adult) (pediatric); E66.9 Obesity, unspecified; F41.9 Anxiety disorder, unspecified; Z99.81 Dependence on supplemental oxygen; Z79.899 Other long term (current) drug therapy; Z79.01 Long term (current) use of anticoagulants; Z83.3 Family history of diabetes mellitus; Z90.49 Acquired absence of other specified parts of digestive tract; Z87.891 Personal history of nicotine dependence; Z88.1 Allergy status to other antibiotic agents; Z20.822 Contact with and (suspected) exposure to COVID-19
CPT/HCPCS: 36415; 36600; 71045; 80048; 80053; 80061; 82550; 82553; 82803; 82962; 83036; 83735; 83874; 83880; 84484; 85025; 85027; 93005; 94640; 94660; 94664; 94760; 99285; G0378; U0002

== ENCOUNTER 2020-07-17 20:18 | Emergency (ER) | payer OTHER ==
[2020-07-17 21:57] LABS: HEMOGLOBIN 10.7 gm/dl (12.3-15.3); RED BLOOD COUNT 4.16 M/UL (4.00-5.10); WHITE BLOOD COUNT 7.6 K/UL (4.5-11.0)
== END 2020-07-17 22:55 | disposition home or self-care (01) ==
LOC: ER1 20:18
PROVIDERS: Family Medicine
DX: M25.551 Pain in right hip (principal); M25.552 Pain in left hip; E11.9 Type 2 diabetes mellitus without complications; J44.9 Chronic obstructive pulmonary disease, unspecified
CPT/HCPCS: 71045; 73522; 80053; 85025; 93005; 96372; 96374; 99284; J1642; J2270; J2550

== ENCOUNTER 2020-09-03 17:49 | Emergency (ER) | payer OTHER ==
[2020-09-03 20:05] LABS: HEMOGLOBIN 10.6 gm/dl (12.3-15.3); RED BLOOD COUNT 4.24 M/UL (4.00-5.10)
[2020-09-03 20:26] LABS: BUN/CREATININE RATIO 23 (0-10)
[2020-09-03] MEDS ORDERED: ZOFRAN ODT 4 MG4 MG PO (22:54)
[2020-09-03] MEDS ORDERED: MACRODANTIN50 MG PO (22:54)
== END 2020-09-03 23:02 | disposition home or self-care (01) ==
LOC: ER1 17:49
PROVIDERS: Emergency Medicine
DX: N39.0 Urinary tract infection, site not specified (principal); M79.672 Pain in left foot; M79.671 Pain in right foot; R06.02 Shortness of breath; I48.91 Unspecified atrial fibrillation; I11.0 Hypertensive heart disease with heart failure; I50.9 Heart failure, unspecified; J44.9 Chronic obstructive pulmonary disease, unspecified; E11.40 Type 2 diabetes mellitus with diabetic neuropathy, unspecified
CPT/HCPCS: 71045; 73630; 80053; 81001; 82550; 82553; 84484; 85025; 93005; 99284

== ENCOUNTER 2020-09-14 15:48 | Emergency (ER) | payer OTHER ==
[~2020-09-14 15:48] MED LIST changes: +MACRODANTIN50 MG PO; +ZOFRAN ODT 4 MG4 MG PO
[2020-09-14 17:10] LABS: HEMOGLOBIN 9.8 gm/dl (12.3-15.3); RED BLOOD COUNT 3.97 M/UL (4.00-5.10); WHITE BLOOD COUNT 6.2 K/UL (4.5-11.0)
[2020-09-14 17:39] LABS: BUN/CREATININE RATIO 17 (0-10)
[2020-09-14] MEDS ORDERED: PERCOCET 5/325 T1 EA PO (18:58)
== END 2020-09-14 19:13 | disposition home or self-care (01) ==
LOC: ER1 15:48
PROVIDERS: Family Medicine
DX: R06.02 Shortness of breath (principal); J44.9 Chronic obstructive pulmonary disease, unspecified; E11.9 Type 2 diabetes mellitus without complications; I50.9 Heart failure, unspecified
CPT/HCPCS: 80053; 82550; 82553; 83874; 84484; 85025; 93005; 94664; 94760; 96374; 96375; 99285; J2270; J2405

== ENCOUNTER 2020-11-28 21:16 | Emergency (ER) | payer OTHER ==
[~2020-11-28 21:16] MED LIST changes: +PERCOCET 5/325 T1 EA PO
[2020-11-28 22:36] LABS: HEMOGLOBIN 13.6 gm/dl (12.3-15.3); RED BLOOD COUNT 5.06 M/UL (4.00-5.10); WHITE BLOOD COUNT 21.4 K/UL (4.5-11.0)
[2020-11-28 23:04] LABS: BUN/CREATININE RATIO 25 (0-10)
[2020-11-29] MEDS ORDERED: OMNICEF 300 MG300 MG PO (02:57)
== END 2020-11-29 06:50 | disposition home or self-care (01) ==
LOC: ER1 21:16
PROVIDERS: Physician Assistant
DX: R06.00 Dyspnea, unspecified (principal); I50.9 Heart failure, unspecified; E11.40 Type 2 diabetes mellitus with diabetic neuropathy, unspecified; J44.9 Chronic obstructive pulmonary disease, unspecified; N18.30 Chronic kidney disease, stage 3 unspecified; I48.91 Unspecified atrial fibrillation; Z90.49 Acquired absence of other specified parts of digestive tract; Z79.1 Long term (current) use of non-steroidal anti-inflammatories (NSAID); Z88.1 Allergy status to other antibiotic agents; Z88.8 Allergy status to other drugs, medicaments and biological substances; Z91.041 Radiographic dye allergy status
CPT/HCPCS: 71045; 80053; 82550; 82553; 83874; 83880; 84484; 85025; 85379; 85610; 85730; 93005; 96374; 99285; J0696

== ENCOUNTER 2020-11-30 16:51 | Emergency (ER) | payer OTHER ==
[~2020-11-30 16:51] MED LIST changes: +OMNICEF 300 MG300 MG PO
[2020-11-30 18:15] LABS: HEMOGLOBIN 12.6 gm/dl (12.3-15.3); RED BLOOD COUNT 4.74 M/UL (4.00-5.10); WHITE BLOOD COUNT 16.8 K/UL (4.5-11.0)
[2020-11-30 18:39] LABS: BUN/CREATININE RATIO 22 (0-10)
== END 2020-11-30 22:00 | disposition home or self-care (01) ==
LOC: ER1 16:51
PROVIDERS: Student in an Organized Health Care Education/Training Program
DX: J18.9 Pneumonia, unspecified organism (principal); J44.9 Chronic obstructive pulmonary disease, unspecified; N18.9 Chronic kidney disease, unspecified; E11.9 Type 2 diabetes mellitus without complications; I48.91 Unspecified atrial fibrillation; I50.9 Heart failure, unspecified; I51.9 Heart disease, unspecified; R19.7 Diarrhea, unspecified; Z20.822 Contact with and (suspected) exposure to COVID-19
CPT/HCPCS: 36600; 71045; 71250; 80053; 82550; 82553; 82803; 83874; 84484; 85025; 85610; 96374; 96375; 99285; J0696; J1642; U0002

== ENCOUNTER 2021-01-14 13:23 | Inpatient (IN) | payer OTHER ==
[~2021-01-14] VITALS: Ht 160 cm; Wt 86.6 kg
[~2021-01-14 13:23] MED LIST changes: +DIGITEK125 MCG PO; -DIGITEK250 MCG PO; -LASIX80 MG PO; -REQUIP3 MG PO; +ROPINIROLE HCL3 MG PO
[2021-01-14 14:52] LABS: HEMOGLOBIN 12.4 gm/dl (12.3-15.3); RED BLOOD COUNT 4.46 M/UL (4.00-5.10); WHITE BLOOD COUNT 6.7 K/UL (4.5-11.0)
[2021-01-14 15:23] LABS: BUN/CREATININE RATIO 9 (0-10)
[2021-01-14] MEDS ORDERED: SPIRONOLACTONE50 MG PO (20:34)
[2021-01-14] MEDS ORDERED: TRADJENTA5 MG PO (20:35)
[2021-01-14] MEDS ORDERED: JARDIANCE10 MG PO (20:35)
[2021-01-15 03:23] LABS: RED BLOOD COUNT 4.28 M/UL (4.00-5.10)
[2021-01-15 03:32] LABS: WHITE BLOOD COUNT 3.8 K/UL (4.5-11.0)
[2021-01-15 03:49] LABS: BUN/CREATININE RATIO 11 (0-10)
[2021-01-15] MEDS ORDERED: BUSPIRONE HCL15 MG PO (14:53)
[2021-01-15] MEDS ORDERED: DILTIAZEM 24HR180 M1 PO (14:56)
[2021-01-15] MEDS ORDERED: SULFAMETHOXAZO1 EACH PO (15:06)
[2021-01-15] MEDS ORDERED: FLUCONAZOLE100 MG PO (15:06)
[2021-01-15] MEDS ORDERED: FERROUS SULFAT325 MG PO (15:07)
[2021-01-15] MEDS ORDERED: MONTELUKAST SOD10 MG PO (15:07)
[2021-01-15] MEDS ORDERED: AZITHROMYCIN500 MG PO (15:08)
[2021-01-15] MEDS ORDERED: DONEPEZIL HCL10 MG PO (15:09)
[2021-01-15] MEDS ORDERED: BUDESONIDE0.5 MG/2 M INH (15:10)
[2021-01-16 07:19] LABS: HEMOGLOBIN 11.9 gm/dl (12.3-15.3); RED BLOOD COUNT 4.28 M/UL (4.00-5.10)
[2021-01-16 07:29] LABS: WHITE BLOOD COUNT 11.3 K/UL (4.5-11.0)
[2021-01-16] MEDS ORDERED: DILTIAZEM 24HR240 M1 PO (12:01)
[2021-01-16] MEDS ORDERED: LASIX20 MG PO (12:01)
== END 2021-01-16 14:22 | disposition home or self-care (01) | DRG 189 ==
LOC: ER1 13:23 → MED SURG 4 17:29 → CDU 17:29 → PROG CARE 19:40 → MED SURG 4 01-15 15:53
PROVIDERS: Student in an Organized Health Care Education/Training Program; ADMIT Internal Medicine
PROC: 3E0333Z Introduction of Anti-inflammatory into Peripheral Vein, Percutaneous Approach (ICD-10-PCS; principal; 2021-01-14)
PROC: 5A09457 Assistance with Respiratory Ventilation, 24-96 Consecutive Hours, Continuous Positive Airway Pressure (ICD-10-PCS; 2021-01-14)
DX: J96.21 Acute and chronic respiratory failure with hypoxia (principal); N17.9 Acute kidney failure, unspecified; I48.20 Chronic atrial fibrillation, unspecified; Z20.822 Contact with and (suspected) exposure to COVID-19; E66.2 Morbid (severe) obesity with alveolar hypoventilation; I50.32 Chronic diastolic (congestive) heart failure; I13.0 Hypertensive heart and chronic kidney disease with heart failure and stage 1 through stage 4 chronic kidney disease, or unspecified chronic kidney disease; N18.4 Chronic kidney disease, stage 4 (severe); F11.20 Opioid dependence, uncomplicated; I27.20 Pulmonary hypertension, unspecified; E11.40 Type 2 diabetes mellitus with diabetic neuropathy, unspecified; E87.5 Hyperkalemia; F17.210 Nicotine dependence, cigarettes, uncomplicated; E55.9 Vitamin D deficiency, unspecified; F03.90 Unspecified dementia, unspecified severity, without behavioral disturbance, psychotic disturbance, mood disturbance, and anxiety; J44.9 Chronic obstructive pulmonary disease, unspecified; K21.9 Gastro-esophageal reflux disease without esophagitis; F32.A Depression, unspecified; G89.4 Chronic pain syndrome; G47.00 Insomnia, unspecified; G25.81 Restless legs syndrome; I44.39 Other atrioventricular block; F41.9 Anxiety disorder, unspecified; E11.22 Type 2 diabetes mellitus with diabetic chronic kidney disease; Z79.01 Long term (current) use of anticoagulants; Z79.4 Long term (current) use of insulin; Z99.81 Dependence on supplemental oxygen; Z90.49 Acquired absence of other specified parts of digestive tract; Z98.42 Cataract extraction status, left eye; Z98.41 Cataract extraction status, right eye; Z88.5 Allergy status to narcotic agent; Z88.8 Allergy status to other drugs, medicaments and biological substances; Z88.6 Allergy status to analgesic agent; Z88.1 Allergy status to other antibiotic agents; Z91.041 Radiographic dye allergy status; Z83.3 Family history of diabetes mellitus; Z82.49 Family history of ischemic heart disease and other diseases of the circulatory system; Z68.33 Body mass index [BMI] 33.0-33.9, adult
CPT/HCPCS: 36415; 36600; 71045; 71046; 80053; 82550; 82553; 82803; 82962; 83874; 83880; 84132; 84484; 85025; 85027; 85379; 93005; 93970; 94640; 94660; 94664; 94760; 96374; 97116; 97162; 97166; 99285; J0696; J1100; J2920; U0002

== ENCOUNTER 2021-01-24 14:07 | Emergency (ER) | payer OTHER ==
[~2021-01-24 14:07] MED LIST changes: +DONEPEZIL HCL10 MG PO; +FERROUS SULFAT325 MG PO; +FLUCONAZOLE100 MG PO; +JARDIANCE10 MG PO; +MONTELUKAST SOD10 MG PO; +SPIRONOLACTONE50 MG PO; +SULFAMETHOXAZO1 EACH PO
[2021-01-24 16:20] LABS: HEMOGLOBIN 13.8 gm/dl (12.3-15.3); RED BLOOD COUNT 4.92 M/UL (4.00-5.10); WHITE BLOOD COUNT 6.2 K/UL (4.5-11.0)
[2021-01-24 16:45] LABS: BUN/CREATININE RATIO 15 (0-10)
== END 2021-01-24 19:50 | disposition home or self-care (01) ==
LOC: ER1 14:07
PROVIDERS: Physician Assistant
DX: R06.02 Shortness of breath (principal); M79.89 Other specified soft tissue disorders; I48.91 Unspecified atrial fibrillation; I11.0 Hypertensive heart disease with heart failure; I50.9 Heart failure, unspecified; J44.9 Chronic obstructive pulmonary disease, unspecified; E78.5 Hyperlipidemia, unspecified; Z90.49 Acquired absence of other specified parts of digestive tract
CPT/HCPCS: 71045; 80053; 82550; 82553; 83874; 83880; 84484; 85025; 93005; 99285